=== PATIENT | female | born 1955 | race Caucasian/White ===

== ENCOUNTER 2023-12-24 12:59 | Emergency (ER) | payer OTHER, SELFPAY ==
[2023-12-24 13:12] VITALS: BP 136/70
[2023-12-24 13:24] LABS: % Basophils 0.6 % (0-2); % Eosinophils 3.1 % (0-6); % Immature Granulocytes 0.3 % (0-0.5); % Lymphocytes 23.3 % (20.5-51.1); % Monocytes 7.6 % (1.7-9.3); % Neutrophils 65.1 % (42.2-75.2); Absolute Eosinophils 0.2 10^3/uL (0-0.7); Absolute Lymphocytes 1.5 10^3/uL (1.2-3.4); Absolute Monocytes 0.5 10^3/uL (0.1-0.6); Absolute Neutrophils 4.2 10^3/uL (1.4-6.5); Hemoglobin 11.9 g/dL (12.0-16.0); Mean Corp Hgb Conc. 33.1 g/dL (33.0-37.0); Mean Corpuscular Hgb 27.3 pg (27.0-31.0); Mean Corpuscular Volume 82.6 fL (81.0-99.0); Mean Platelet Volume 9.8 fL (7.4-10.4); Nucleated Red Blood Cells % 0 %; Platelet Count 231 10^3/uL (130-400); Red Blood Cell Count 4.36 10^6/uL (4.20-5.40); Red Cell Dist. Width 13.9 % (11.5-14.5); White Blood Cell Count 6.4 10^3/uL (4.8-10.8)
[2023-12-24 13:37] LABS: ALT (SGPT) 21 U/L (0-35); AST (SGOT) 28 U/L (14-36); Albumin 4.4 g/dl (3.5-5.0); Alkaline Phosphatase 83 U/L (38-126); Blood Urea Nitrogen 13 mg/dl (7-17); Calcium 9.3 mg/dl (8.4-10.2); Carbon Dioxide 27 mmol/L (22-30); Chloride 106 mmol/L (98-107); Glucose 116 mg/dl (70-99); Potassium 4.1 mmol/L (3.5-5.1); Sodium 139 mmol/L (135-145); Total Bilirubin 0.4 mg/dl (0.2-1.3); Total Protein 7.6 g/dl (6.3-8.2); eGFR > 60.00
--- NOTE | 2023-12-24 15:47 | ED.GENMED ---
History of Present Illness
<CRISELDA Zurita - Last Filed: 12/24/23 20:48>
General
Chief Complaint: Extremity Pain (non-traumatic)
Source: patient
Exam Limitations: none
Time Seen by Provider: 12/24/23 14:44
Nursing documentation reviewed up to this point in time: agreed with
Travel History
Have you had any contact with someone who has COVID-19?: No
Do you have any symptoms of coronavirus? Fever > 100 degrees, chills, cough, shortness of breath, sore throat, loss of taste or smell, muscle aches, or headache?: No
History of Present Illness
History of Present Illness:
68-year-old female presents to the ER complaining of left hand pain since yesterday. She complains of swelling. She does have arthritis and used Voltaren cream last night and took Tylenol without relief.
Patient denies injury. She denies any associated fevers.
She also complains of right leg discomfort swelling and burning. She reports she has had swelling in her right leg for a year. She does believe she had ultrasound years ago. She reports it is constantly swollen and she has burning pain from her
buttocks down to her right leg. She denies any redness. She denies any fevers/chills.
Past History
<CRISELDA Zurita - Last Filed: 12/24/23 20:48>
Past History
ED Past Medical History: GERD, Hypercholesterolemia and Other (Rheumatoid arthritis, gastroenteritis)
ED Past Surgical History: Appendectomy
Social History
Tobacco: Non-smoker
Alcohol: None
Personal:
Living: with family
Employment: Not employed
Family History
Family History: Other (Noncontributory)
Review of Systems
<CRISELDA Zurita - Last Filed: 12/24/23 20:48>
Review of Systems
Allergies reviewed?: Yes
Other source history: family
All Other Systems: ROS reviewed and negative except as documented in HPI and ROS
Constitutional: Reports no symptoms; Denies fever, fatigue or chills
Respiratory: Reports no symptoms
Cardiac: Reports no symptoms
ABD/GI: Reports no symptoms
Musculoskeletal: Reports other (left hand pain, right leg pain )
Skin: Reports no symptoms
Endocrine: Reports no symptoms
Hematologic/Lymphatic: Reports no symptoms
Phy Exam
<CRISELDA Zurita - Last Filed: 12/24/23 20:48>
General Physical Exam
General Presentation: no apparent distress
General age: appears stated age
General Skin: warm and dry
General Habitus: normal
General Mental: alert
General Hydration: appears well hydrated
Neurological Exam
Neurological Exam: alert and oriented x3
Musculoskeletal Exam
Musculoskeletal Exam: other (Left upper extremity strong pulses patient tender to the fourth MCP joint faint small area of erythema to this area full range of motion mild swelling to the area right lower extremity with strong pulses right leg
appears overall mildly larger than left however no edema on exam no erythema full ran)
Skin Exam
Skin Exam: normal color and warm/dry
Psychiatric Exam
Psychiatric Exam: normal mood/affect
Course
<CRISELDA Zurita - Last Filed: 12/24/23 20:48>
Orders/Labs/Results
Orders:
Orders
12/24/23 13:18
Complete Blood Count/With Diff Urgent
Comprehensive Metabolic Panel Urgent
12/24/23 15:51
Venous Doppler Lwr Ext Rt [US Periph Venous LOWER Ext RT] Urgent
Comment:
Reason For Exam: pain /swelling
12/24/23 15:52
Hand, Left 3 View [CR Hand - Left Min 3 Views] Urgent
Comment:
Reason For Exam: pain tenderness of 4th MCP joint
12/24/23 17:25
Ibuprofen [Motrin] 400 mg PO NOW STA
12/24/23 19:08
Amoxicillin 875 mg/Clav 125 mg [Augmentin 875 mg/125 mg] 1 tablet PO NOW STA
Oxycodone/Acetaminophen [Percocet 5/325] 1 tablet PO NOW STA
12/24/23 19:21
Splints/Slings/Crut- Treatment ONCE
Location: Left
Type of Splint: [place] Wrist
Abnormal Lab Results
12/24/23
13:18
Hgb 11.9 L g/dL
(12.0-16.0)
Hct 36.0 L %
(37.0-47.0)
Creatinine 0.5 L mg/dL
(0.6-1.0)
Glucose 116 H mg/dl
(70-99)
12/24/23 13:18
12/24/23 13:18
Vital Signs
Initial and Last Documented VS:
Initial Vital Signs
Temp Pulse Resp BP Pulse Ox
98.3 F 77 18 136/70 97
12/24/23 13:12 12/24/23 13:12 12/24/23 13:12 12/24/23 13:12 12/24/23 13:12
Last Documented Vital Signs
Temp Pulse Resp BP Pulse Ox
98.3 F 77 18 122/72 97
12/24/23 13:12 12/24/23 13:12 12/24/23 13:12 12/24/23 19:00 12/24/23 13:12
Gastroenterology Professor consulted with Physician
Gastroenterology Professor consulted with physician?: Yes
Name of Physician Consulted: cristian
<Gustavo Delgado, DO - Last Filed: 12/24/23 19:12>
Orders/Labs/Results
Orders:
Orders
12/24/23 13:18
Complete Blood Count/With Diff Urgent
Comprehensive Metabolic Panel Urgent
12/24/23 15:51
Venous Doppler Lwr Ext Rt [US Periph Venous LOWER Ext RT] Urgent
Comment:
Reason For Exam: pain /swelling
12/24/23 15:52
Hand, Left 3 View [CR Hand - Left Min 3 Views] Urgent
Comment:
Reason For Exam: pain tenderness of 4th MCP joint
12/24/23 17:25
Ibuprofen [Motrin] 400 mg PO NOW STA
12/24/23 19:08
Amoxicillin 875 mg/Clav 125 mg [Augmentin 875 mg/125 mg] 1 tablet PO NOW STA
Oxycodone/Acetaminophen [Percocet 5/325] 1 tablet PO NOW STA
12/24/23 19:21
Splints/Slings/Crut- Treatment ONCE
Location: Left
Type of Splint: [place] Wrist
Abnormal Lab Results
12/24/23
13:18
Hgb 11.9 L g/dL
(12.0-16.0)
Hct 36.0 L %
(37.0-47.0)
Creatinine 0.5 L mg/dL
(0.6-1.0)
Glucose 116 H mg/dl
(70-99)
12/24/23 13:18
12/24/23 13:18
Vital Signs
Initial and Last Documented VS:
Initial Vital Signs
Temp Pulse Resp BP Pulse Ox
98.3 F 77 18 136/70 97
12/24/23 13:12 12/24/23 13:12 12/24/23 13:12 12/24/23 13:12 12/24/23 13:12
Last Documented Vital Signs
Temp Pulse Resp BP Pulse Ox
98.3 F 77 18 122/72 97
12/24/23 13:12 12/24/23 13:12 12/24/23 13:12 12/24/23 19:00 12/24/23 13:12
<CRISELDA Zurita - Last Filed: 12/24/23 20:48>
MDM/Problems Addressed
MDM/Problems Addressed:
Patient is a 68-year-old female who presents for pain to left hand. Patient has a history of arthritis however has increasing pain in the left hand since yesterday worse over the fourth MTP joint. No associated fevers. Patient complains of
chronic right leg pain she reports her right leg seems always mildly swollen. She has had ultrasound in the past for this which was negative. She denies any actual fever or chills. Arrival she has no acute distress afebrile white count 6.4.
Patient has very trace minimal redness to the left hand over the fourth MCP joint. She was evaluated by ED physician . pt is on amox for dental infection however with minimal redness over MTP joint and minimal tenderness over flexor tendon patient
was changed to Augmentin a prescription for anti-inflammatory was sent to pharmacy. Right leg pain likely chronic negative ultrasound to follow-up with orthopedics for hand family doctor and family also requested rheumatology
<CRISELDA Zurita - Last Filed: 12/24/23 20:48>
*Radiology
Radiology exam reviewed: radiology read reviewed
*Pulse Oximetry
Patient hypoxic: no
*Critical Care Note
Total Time (30-74mins, 75-104mins- exclusive of procedures): Not Applicable
ED Attending Note
<CRISELDA Zurita - Last Filed: 12/24/23 20:48>
-
Portions of this chart may have been created with voice recognition software.� Occasional wrong word or��sound alike� substitutions may have occurred due to the inherent limitations of voice recognition software.
<Gustavo Delgado DO - Last Filed: 12/24/23 19:12>
ED Attending Note
Patient seen and examined by attending physician: Yes
I performed the substantive portion of visit, reviewed & personally made and approve the management plan that is documented in note by myself or ANIVAL.: Yes
ED Attending Note:
I have seen and evaluated the patient with a [id number] encounter. I have spoken to the advance practicer provider and involved in the medical history, the physical exam, medical decision making.
Evaluation and management service: agree unless noted differently below.
Results interpretation: agree unless noted differently below.
Focused HPI: 68-year-old female presenting with left hand pain and right thigh pain. This has been ongoing for the past 3 days or so
Physical exam: Arthritic changes to left hand along third and fourth MCP and PIP. There is mild tenderness to palmar surface of right fourth flexor tendon. The finger is not stuck in flexion nor is there fusiform swelling. Tenderness along right
thigh IT band. No tenderness to deep venous palpation. Distal extremity of left hand and right leg within normal limits neurovascularly
Medical Decision Making: In regards to her thigh pain, we discussed stretching. Will obtain ultrasound to rule out DVT but clinically doubt it. In regards to the hand pain, I am mildly concerned about tenderness along the flexor tendon. There is
mild swelling of the finger but this is more likely arthritic changes. She is already on amoxicillin for dental infection. I will change prescription to Augmentin for broader coverage and discussed splint and follow-up with hand orthopedist.
Discharge Plan
Departure
Patient Disposition: Home (Routine Discharge)
Date of Disposition: 12/24/23
Time of Disposition: 19:55
Patient with high blood pressure during this ER visit?: Yes
Condition: Fair
Covid-19: Not Applicable
Discharge Problem:
Arthritis, Iliotibial band syndrome
Prescriptions:
New
diclofenac potassium 50 mg tablet
50 mg PO BID Qty: 20 0RF
amoxicillin-pot clavulanate 875-125 mg tablet
1 tab PO BID Qty: 14 0RF
No Action
tolterodine 4 MG capsule,extended release 24hr
4 mg PO DAILY
[id number]-epa-fish oil 1 EACH capsule,delayed release(DR/EC)
1 ea PO QID
omeprazole 20 MG capsule,delayed release(DR/EC)
20 mg PO DAILY
rosuvastatin [Crestor] 10 MG tablet
10 mg PO DAILY
icosapent ethyl [Vascepa] 1 GM capsule
1 gm PO DAILY
Referrals:
Bruna Espinoza MD [Consulting Staff] -
Adryan Mancilla MD [Active] -
Chad Antonio MD [Active] -
Nati Stanton MD [Family Provider] -
Activity Restrictions/Additional Instructions:
As we discussed, I am switching your amoxicillin to Augmentin. Please keep your left hand in the splint for comfort.
Please make an appointment to see the hand orthopedist. The [facility] orthopedist is Dr. Antonio and the [facility] orthopedist is Dr. Mancilla.
Try to stretch out your right leg is much as possible.
Please talk to your doctor about referral to a orthopedic mechanic in regards to your hand arthritis.
Please return for any worsening symptoms.
You may return at any time if you have further concerns.
Please follow up with your doctor at the first available appointment, preferably this week.
Thank you for choosing [facility].
Interventions
Interventions:
*Risk Screen - Suicide Last Done: 12/24/23 17:34
*General Assessment Last Done: 12/24/23 17:34
*Neglect/Abuse Screening Last Done: 12/24/23 17:34
ED- Fall Risk Assessment Last Done: 12/24/23 20:24
*ED COVID-19 Vaccine History Last Done: 12/24/23 17:34
*Nursing Disposition Last Done: 12/24/23 20:24
ED-Skin Assessment Last Done: 12/24/23 17:34
ED-Peripheral Vascular Assessment Last Done: 12/24/23 17:34
ED-Musculoskeletal Assessment Last Done: 12/24/23 17:34
Discharge Date and Time
Discharge Date/Time: 12/24/23 20:24
[2023-12-24] MEDS: MOTRIN 400 MG PO (17:32)
[2023-12-24 17:34] VITALS: BMI 32.0
[2023-12-24 17:39] VITALS: BP 105/85
[2023-12-24 18:00] VITALS: BP 124/62
[2023-12-24 19:00] VITALS: BP 122/72
[2023-12-24] MEDS: AUGMENTIN 875 MG/125 MG 1 TABLET PO (20:15)
[2023-12-24] MEDS: PERCOCET 5/325 1 TABLET PO (20:15)
== END 2023-12-24 20:24 | disposition home or self-care (01) ==
LOC: EMR 12:59
PROVIDERS: Emergency Medicine; EMERGENCY PHYSICIAN Student in an Organized Health Care Education/Training Program; FAMILY PHYSICIAN Family Medicine
DX: M19.90 Unspecified osteoarthritis, unspecified site (principal); M76.31 Iliotibial band syndrome, right leg; M79.642 Pain in left hand; M79.604 Pain in right leg; M79.651 Pain in right thigh; K04.7 Periapical abscess without sinus; M79.89 Other specified soft tissue disorders; R20.8 Other disturbances of skin sensation; R03.0 Elevated blood-pressure reading, without diagnosis of hypertension; E78.00 Pure hypercholesterolemia, unspecified; K21.9 Gastro-esophageal reflux disease without esophagitis; M06.9 Rheumatoid arthritis, unspecified
CPT/HCPCS: 99284; 29125; 73130; 80053; 85025; 93971

== ENCOUNTER → 2024-01-04 10:00 | Outpatient (REF) | payer OTHER, SELFPAY | LOC: EMG 10:00 | PROVIDERS: ATTENDING PHYSICIAN Orthopaedic Surgery | DX: R20.0 Anesthesia of skin (principal) | CPT/HCPCS: 95886; 95909 ==

== ENCOUNTER 2024-12-26 12:32 | Emergency (ER) | payer OTHER, SELFPAY ==
[2024-12-26 12:36] VITALS: BP 153/64
[2024-12-26 12:48] VITALS: BP 115/64
[2024-12-26 13:00] VITALS: BP 105/77
--- NOTE | 2024-12-26 13:19 | ED.GENMED ---
History of Present Illness
General
Chief Complaint: Breathing Problem
Source: patient
Exam Limitations: none
Time Seen by Provider: 12/26/24 13:02
Nursing documentation reviewed up to this point in time: agreed with
History of Present Illness
History of Present Illness:
Patient to ED with complaint of SOB. Her is here in the ED and is being admitted. Daughter states patient was at home by herself and suddenly became SOB. Denies any CP/pressure. Hyperventilating in ED. No prior history of same. Denies
fever/chills, recent illness. No cough. Brought to ED by daughter for eval.
Past History
Past History
ED Past Medical History: GERD, Hypercholesterolemia and Other (Rheumatoid arthritis, gastroenteritis)
ED Past Surgical History: Appendectomy
Social History
Tobacco: Non-smoker
Alcohol: None
Personal:
Living: with family
Employment: Not employed
Family History
Family History: Other (Noncontributory)
Review of Systems
Review of Systems
Allergies reviewed?: Yes
All Other Systems: ROS reviewed and negative except as documented in HPI and ROS
Constitutional: Reports no symptoms
EENT: Reports no symptoms
Respiratory: Reports trouble breathing
Cardiac: Reports no symptoms
ABD/GI: Reports no symptoms
: Reports no symptoms
Musculoskeletal: Reports no symptoms
Skin: Reports no symptoms
Neurological: Reports no symptoms
Psychiatric: Reports no symptoms
Phy Exam
General Physical Exam
General Presentation: well appearing and mild distress
General age: appears stated age
General Skin: warm and dry
General Habitus: normal
General Mental: alert
Cardiovascular Exam
Cardiovascular Exam: regular rate/rhythm and no edema
Pulmonary Exam
Pulmonary Exam: lungs clear, no respiratory distress and chest non tender
Gastrointestinal Exam
Gastrointestinal Exam: non tender and soft
Musculoskeletal Exam
Musculoskeletal Exam: full ROM and neuro vasc intact
Skin Exam
Skin Exam: normal color, warm/dry and no rash
Psychiatric Exam
Psychiatric Exam: normal mood/affect
Scores
Heart Failure Risk
Heart Failure Risk Score: Not Applicable
Course
Orders/Labs/Results
Orders:
Orders
12/26/24
Electrocardiogram (*1) Stat
Comment: DONE EMR
12/26/24 12:40
Electrocardiogram (*1) Urgent
Reason for Study: Shortness of Breath
EKG- Treatment ONCE
12/26/24 13:16
CR Chest - 2 Views Urgent
Comment:
Reason For Exam: SOB
12/26/24 13:19
Complete Blood Count/With Diff Urgent
Comprehensive Metabolic Panel Urgent
Troponin I Urgent
12/26/24 13:21
Lorazepam [Ativan] 0.25 mg IV NOW STA
12/26/24 15:52
Troponin I Urgent
Abnormal Lab Results
12/26/24
13:19
Hct 36.6 L %
(37.0-47.0)
MCH 26.9 L pg
(27.0-31.0)
MCHC 32.8 L g/dL
(33.0-37.0)
12/26/24 13:19
12/26/24 13:19
Vital Signs
Initial and Last Documented VS:
Initial Vital Signs
Temp Pulse Resp BP Pulse Ox
98.1 F 82 28 153/64 100
12/26/24 12:36 12/26/24 12:36 12/26/24 12:36 12/26/24 12:36 12/26/24 12:36
Last Documented Vital Signs
Temp Pulse Resp BP Pulse Ox
98.1 F 72 18 105/77 95
12/26/24 12:36 12/26/24 16:15 12/26/24 16:15 12/26/24 13:00 12/26/24 16:15
*Radiology
Radiology exam reviewed: radiology read reviewed
*Pulse Oximetry
Patient hypoxic: no
*Critical Care Note
Total Time (30-74mins, 75-104mins- exclusive of procedures): Not Applicable
Update Note
Update Note:
Patient much more comfortable after Ativan. VSS, pulse ox remains 99% RA. CXR NAD. Labs without concerning findings. Will discharge home and she will follow upw tih PCP in AM Given instructions on s/s to return to ED and pt and son are agreeable
to plan.
ED Attending Note
-
Portions of this chart may have been created with voice recognition software.� Occasional wrong word or��sound alike� substitutions may have occurred due to the inherent limitations of voice recognition software.
Discharge Plan
Departure
Patient Disposition: Home (Routine Discharge)
Date of Disposition: 12/26/24
Time of Disposition: 16:33
Patient with high blood pressure during this ER visit?: No
Condition: Good
Covid-19: Not Applicable
Discharge Problem:
Anxiety
Instructions: Panic Attack ED
Prescriptions:
No Action
acetaminophen [Tylenol] 325 mg Tablet
650 mg PO Q6HPRN PRN (Reason: mild pain)
pantoprazole [Protonix] 40 mg Tablet,Delayed Release (Dr/Ec)
40 mg PO DAILY
rosuvastatin [Crestor] 10 mg Tablet
10 mg PO QPM
mirabegron [Myrbetriq] 25 mg Tablet Extended Release 24 Hr
25 mg PO DAILY
Referrals:
Nati Stanton MD [Family Provider] - Tomorrow
Activity Restrictions/Additional Instructions:
Return to the emergency department immediately for any changes in/worsening of your symptoms.
Interventions
Interventions:
*Risk Screen - Suicide Last Done: 12/26/24 12:36
*General Assessment Last Done: 12/26/24 12:36
*Neglect/Abuse Screening Last Done: 12/26/24 12:36
ED- Fall Risk Assessment Last Done: 12/26/24 12:46
*ED COVID-19 Vaccine History Last Done: 12/26/24 12:46
ED- Cardiac Assessment Last Done: 12/26/24 12:46
ED- Pulmonary Assessment Last Done: 12/26/24 12:46
Discharge Date and Time
Print Language: [place]
[2024-12-26] MEDS: ATIVAN 0.25 MG IV (13:28)
[2024-12-26 13:35] LABS: % Basophils 0.5 % (0-2); % Eosinophils 2.1 % (0-6); % Immature Granulocytes 0.2 % (0-0.5); % Lymphocytes 29.4 % (20.5-51.1); % Monocytes 8.2 % (1.7-9.3); % Neutrophils 59.6 % (42.2-75.2); Absolute Eosinophils 0.1 10^3/uL (0-0.7); Absolute Lymphocytes 1.7 10^3/uL (1.2-3.4); Absolute Monocytes 0.5 10^3/uL (0.1-0.6); Absolute Neutrophils 3.5 10^3/uL (1.4-6.5); Hematocrit 36.6 % (37.0-47.0); Mean Corp Hgb Conc. 32.8 g/dL (33.0-37.0); Mean Corpuscular Hgb 26.9 pg (27.0-31.0); Mean Corpuscular Volume 82.1 fL (81.0-99.0); Nucleated Red Blood Cells % 0 %; Platelet Count 227 10^3/uL (130-400); Red Blood Cell Count 4.46 10^6/uL (4.20-5.40); Red Cell Dist. Width 14.3 % (11.5-14.5); White Blood Cell Count 5.8 10^3/uL (4.8-10.8)
[2024-12-26 13:48] LABS: ALT (SGPT) 22 U/L (0-35); AST (SGOT) 27 U/L (14-36); Albumin 4.3 g/dl (3.5-5.0); Alkaline Phosphatase 73 U/L (38-126); Blood Urea Nitrogen 17 mg/dl (7-17); Calcium 9.7 mg/dl (8.4-10.2); Carbon Dioxide 24 mmol/L (22-30); Chloride 106 mmol/L (98-107); Glucose 98 mg/dl (70-99); Potassium 4.3 mmol/L (3.5-5.1); Sodium 140 mmol/L (135-145); Total Bilirubin 0.3 mg/dl (0.2-1.3); Total Protein 7.6 g/dl (6.3-8.2); eGFR > 60.00
[2024-12-26 13:58] LABS: Troponin I < 0.012 ng/ml
[2024-12-26 16:29] LABS: Troponin I < 0.012 ng/ml
== END 2024-12-26 16:58 | disposition home or self-care (01) ==
LOC: EMR 12:32
PROVIDERS: Nurse Practitioner; EMERGENCY PHYSICIAN Emergency Medicine; FAMILY PHYSICIAN Family Medicine
DX: F41.9 Anxiety disorder, unspecified (principal); R06.02 Shortness of breath; E78.00 Pure hypercholesterolemia, unspecified; K21.9 Gastro-esophageal reflux disease without esophagitis; M06.9 Rheumatoid arthritis, unspecified
CPT/HCPCS: 99285; 96374; 71046; 80053; 84484; 85025; 93005